=== PATIENT | female | born 1995 | race Two or more races ===

== ENCOUNTER 2022-05-03 19:01 | Emergency (ER) | payer OTHER ==
[~2022-05-03] VITALS: Ht 172.7 cm; Wt 59.4 kg
== END 2022-05-03 20:50 | disposition home or self-care (01) ==
LOC: ER 19:01
DX: S50.02XA Contusion of left elbow, initial encounter (principal); W05.1XXA Fall from non-moving nonmotorized scooter, initial encounter; Y93.89 Activity, other specified; Y92.89 Other specified places as the place of occurrence of the external cause; Y99.9 Unspecified external cause status